=== PATIENT | female | born 1930 | race Caucasian/White ===

== ENCOUNTER 2016-10-28 17:00 | Inpatient (IN) | payer OTHER ==
[~2016-10-28] VITALS: Ht 149.9 cm; Wt 53.5 kg
[2016-10-28 17:00] VITALS: BP_SYST 109
--- NOTE | 2016-10-28 17:00 | NUR ---
Placed in room 04. Placed on campus monitor, blood pressure machine and pulse oximeter. To gown for exam. Side rails up. Report given to DAVID Laguerre.
--- NOTE | 2016-10-28 17:25 | NUR ---
Dr Yusuf at bedside examining patient
--- NOTE | 2016-10-28 17:25 | NUR ---
Dr. Dozier at bedside for assessment/eval
--- NOTE | 2016-10-28 17:28 | NUR ---
82y female presented to ED with complaints of abd pain, nausea, vomiting, and diarrhea x 1week; pt is alert and oriented x 4; VSS; pt supine in bed and denies any pain at this time; will continue to monitor
[2016-10-28] MEDS ORDERED: ATEN1TAB47 PO (17:30)
[2016-10-28] MEDS ORDERED: ONDANSETRON HCL 4 MG/2 ML VIAL IVP ONE (17:30)
[2016-10-28] MEDS ORDERED: LOSA50TA3 PO (17:30)
[2016-10-28] MEDS ORDERED: POTA-118 PO (17:30)
[2016-10-28] MEDS ORDERED: NACL 0.9% 1,000 ML IV ONE (17:30)
[2016-10-28] MEDS ORDERED: GLUXR500 PO (17:30)
[2016-10-28] MEDS ORDERED: OMEP20CA10 PO (17:30)
[2016-10-28] MEDS ORDERED: HYDROmorphone 1 MG INJ. 1 MG/ML AMPUL IVP ONE (17:30)
[2016-10-28] MEDS ORDERED: SIMV40TA2 PO (17:30)
--- NOTE | 2016-10-28 17:30 | NUR ---
Medication reconciliation completed with information provided by bottles provided by pt. Family will take them home. Any prior medication reconciliation on file was reviewed and corrected.
[2016-10-28 17:49] LABS: BASOPHILS % (AUTO) 0.2 % (0.0-2.0); EOSINOPHILS % (AUTO) 0.2 % (0.0-4.0); HEMATOCRIT 36.9 % (36-48); HEMOGLOBIN 12.5 g/dL (12.0-16.0); LYMPHOCYTES # (AUTO) 1.7 K/uL (1.0-5.5); LYMPHOCYTES % (AUTO) 19.5 % (20.5-51.5); MEAN CORPUSCULAR HEMOGLOBIN 32 pg (27-31); MEAN CORPUSCULAR HGB CONC 34 % (32-36); MEAN CORPUSCULAR VOLUME 94 fL (79.0-98.0); MONOCYTES # (AUTO) 0.5 K/uL (0.0-1.0); MONOCYTES % (AUTO) 5.3 % (1.7-9.3); NEUTROPHILS # (AUTO) 6.5 K/uL (1.8-7.7); NEUTROPHILS % (AUTO) 74.8 % (40.0-70.0); PLATELET COUNT (AUTO) 213 K/uL (130-430); RED BLOOD CELL COUNT(AUTO) 3.92 MIL/uL (4.2-6.2); RED CELL DISTRIBUTION WIDTH 13.4 % (9.0-15.0); WHITE BLOOD COUNT (AUTO) 8.7 K/uL (4.8-10.8)
[2016-10-28 18:02] LABS: ANION GAP 12 (5-15); CALCIUM 8.8 mg/dL (8.4-11.0); CHLORIDE 100 mmol/L (98-107); CREATININE 1.29 mg/dL (0.55-1.30); GLUCOSE 180 mg/dL (70-99); POTASSIUM 3.7 mmol/L (3.5-5.1); SODIUM SERUM 134 mmol/L (136-145); UREA NITROGEN, BLOOD 31 mg/dL (8-21)
[2016-10-28 18:06] LABS: ALANINE AMINOTRANSFERASE 29 U/L (12-78); ALBUMIN 3.4 g/dL (3.4-4.8); AMYLASE 71 U/L (0-100); ASPARTATE AMINOTRANSFERASE 33 U/L (10-37); LIPASE 365 U/L (73-393); TOTAL BILIRUBIN 0.3 mg/dL (0.0-1.0)
--- NOTE | 2016-10-28 18:20 | NUR ---
pt off unit to [facility]
[2016-10-28] MEDS ORDERED: PROMETHAZINE HCL 50 MG/ML AMP IM ONE (18:30)
[2016-10-28] MEDS ORDERED: MELO15TA13 PO (18:35)
--- NOTE | 2016-10-28 18:35 | NUR ---
pt return to unit from CT; c/o of nausea; emesis x 1 while in bed; MD orders noted and given; will continue to monitor. Addendum: 10/28/16 at 1935 by SDEDPM made aware pt unable to void to retrieve urine sample at this time; no further orders given at this time; will reattempt collection
--- NOTE | 2016-10-28 18:55 | NUR ---
Dr. Jones at bedside with family discussing assessments and evaluation; further orders given
--- NOTE | 2016-10-28 19:04 | NUR ---
pt placed on 2L O2 via NC; resting comfortably in bed; VSS 126/45 P 59; 95% O2 sat 2L
[2016-10-28 19:53] LABS: BILIRUBIN,URINE NEGATIVE (NEGATIVE); BLOOD, URINE NEGATIVE (NEGATIVE); CLARITY/URINE CLEAR (CLEAR); COLOR,URINE YELLOW (YELLOW); GLUCOSE,URINE NEGATIVE (NEGATIVE); KETONES,URINE 1+ (NEGATIVE); LEUKOCYTE ESTERASE ,URINE 1+ (NEGATIVE); NITRITE, URINE NEGATIVE (NEGATIVE); PH,URINE 5.5 (5.0-8.0); PROTEIN URINE NEGATIVE (NEGATIVE); UROBILINOGEN,URINE 0.2 (0.2-1.0)
--- NOTE | 2016-10-28 20:10 | NUR ---
Patient will be admitted to care of Dr Cabello . Admitted to Medsurg unit. Will go to room 123A. Belongings list completed. Summary report printed. Report will be given at bedside.
--- NOTE | 2016-10-28 20:13 | NUR ---
ADMISSION NOTE Received patient from ER via gurney. Patient admitted with diagnosis of 84. Patient is awake, alert, oriented X 4. Patient oriented to hospital room, call light, toileting, pain management and safety-teach back done. Patient informed that GEOVANNI LEOS will be her nurse and that their room number is 123A. Personal belongings checked and Belongings List documented. Call light within reach.
[2016-10-28 20:23] LABS: BACTERIA,URINE RARE /HPF (None Seen); RBC,URINE 0-3 /HPF (0-3)
[2016-10-28 20:28] VITALS: BP_SYST 140
[2016-10-28] MEDS ORDERED: INSULIN ASPART 100 UNITS/ML, 10 ML VIAL (NovoLOG) SUBCUT PRN (20:30)
[2016-10-28] MEDS ORDERED: DEXTROSE 50% JECT 50 ML DISP.SYRIN IVP PRN (20:30)
[2016-10-28] MEDS: METOCLOPRAMIDE HCL 10 MG/2 ML VIAL IVP SCH ×2 (21:22→22:00)
[2016-10-28] MEDS: NACL 0.9% 1,000 ML IV SCH (21:22)
--- NOTE | 2016-10-28 21:35 | NUR ---
NOTES; BLOOD SUGAR FOUND TO BE 160. INSULIN ADMINISTERED SUBCUTANEOUSLY PER [employer] ORDER.
--- NOTE | 2016-10-28 22:29 | NUR ---
GAYE HUIZAR CALLED AND WAS ASKING TO TALK TO THE DOCTOR TO DOCTOR TO SEE IF THEY NEEDED TO TRANSFER OUT. [employer] SUPERVISOR ADRIANNA SPOKE WITH THEM GAVE THEM DOCTOR LOPEZ NUMBER AND THAT GAYE WAS ASKING FOR US TO FAX THEM THE ED NOTES. I FAXED IT TO THEM AND AWAITING ANY INFO BACK FROM THEM. CHARGE NURSE IS AWARE. Addendum: 10/28/16 at 3607 by Kyara Conley [facility] CALLED AT 1183
--- NOTE | 2016-10-28 22:57 | NUR ---
[facility] CALLED AND SAID THAT THEY ARE STILL WAITING FOR THEIR DOCTOR TO GET AHOLD OF DOCTOR LOPEZ. LV SAID HE WILL CALL US BACK WITH ANY INFO .
[2016-10-28 23:47] VITALS: BP_SYST 100
--- NOTE | 2016-10-29 00:20 | NUR ---
NOTES; PT APPEARED TO BE SLEEPING, EYES CLOSED, RESPIRATION EVEN AND UNLABORED. EASILY AROUSED. DENIES ANY PAIN AT THIS TIME. SAFETY MEASURES IN PROGRESS.
--- NOTE | 2016-10-29 02:45 | NUR ---
NOTES; ASSISTED TO THE BEDSIDE COMMODE. PT VOIDED FREELY GOOD URINE VOLUM. ASSISTED BACK TO BED. PT GAIT IS UNSTEADY. DENIES ANY PAIN AT THIS TIME4. SAFETY MEASURES IN PROGRESS.
[2016-10-29 03:44] VITALS: BP_SYST 103
--- NOTE | 2016-10-29 04:41 | NUR ---
NOTES; PT APPEARED TO BE SLEEPING, EYES CLOSED, RESPIRATION EVEN AND UNLABORED. EASILY AROUSED. DENIES ANY PAIN AT THIS TIME. SAFETY MEASURES IN PROGRESS.
--- NOTE | 2016-10-29 05:14 | NUR ---
consult called doctor mera de la vega and they said that doctor troung is rehabilitation construction specialist but doctor troung is on suspension notified the nurse and they will have to follow up the morning .
--- NOTE | 2016-10-29 05:16 | NUR ---
[facility] HAVE NOT HEARD ANYTHING FROM [facility].
--- NOTE | 2016-10-29 05:40 | NUR ---
NOTES; BLOOD SUGAR FOUND TO BE 87. NO INSULIN NEEDED PER [employer] COVERAGE.
[2016-10-29] MEDS: NACL 0.9% 1,000 ML IV SCH (06:06)
[2016-10-29] MEDS: METOCLOPRAMIDE HCL 10 MG/2 ML VIAL IVP SCH ×3 (06:28→21:23)
[2016-10-29 06:54] LABS: BASOPHILS % (AUTO) 0.2 % (0.0-2.0); EOSINOPHILS # (AUTO) 0.1 K/uL (0.0-0.4); EOSINOPHILS % (AUTO) 0.8 % (0.0-4.0); HEMATOCRIT 35.7 % (36-48); HEMOGLOBIN 12.3 g/dL (12.0-16.0); LYMPHOCYTES # (AUTO) 3.2 K/uL (1.0-5.5); LYMPHOCYTES % (AUTO) 36.5 % (20.5-51.5); MEAN CORPUSCULAR HEMOGLOBIN 32 pg (27-31); MEAN CORPUSCULAR HGB CONC 34 % (32-36); MEAN CORPUSCULAR VOLUME 93 fL (79.0-98.0); MONOCYTES # (AUTO) 0.7 K/uL (0.0-1.0); MONOCYTES % (AUTO) 8.3 % (1.7-9.3); NEUTROPHILS # (AUTO) 4.9 K/uL (1.8-7.7); NEUTROPHILS % (AUTO) 54.2 % (40.0-70.0); PLATELET COUNT (AUTO) 182 K/uL (130-430); RED BLOOD CELL COUNT(AUTO) 3.84 MIL/uL (4.2-6.2); RED CELL DISTRIBUTION WIDTH 13.4 % (9.0-15.0); WHITE BLOOD COUNT (AUTO) 8.9 K/uL (4.8-10.8)
[2016-10-29 07:09] LABS: ANION GAP 10 (5-15); CALCIUM 8.4 mg/dL (8.4-11.0); CHLORIDE 107 mmol/L (98-107); CREATININE 1.03 mg/dL (0.55-1.30); GLUCOSE 97 mg/dL (70-99); POTASSIUM 3.6 mmol/L (3.5-5.1); SODIUM SERUM 140 mmol/L (136-145); UREA NITROGEN, BLOOD 21 mg/dL (8-21)
--- NOTE | 2016-10-29 07:11 | NUR ---
NOTES; RESTING QUIETLY, NO APPARENT DISTRESS NOTED. VITAL SIGNS STABLE, AFEBRILE. DENIES ANY PAIN AT THIS TIME. ALL NEEDS ATTENDED. SAFETY MEASURES MAINTAINED.
--- NOTE | 2016-10-29 08:00 | NUR ---
AM Initial Notes Pt aaox4 with no complaints of abdominal pain or feels nauseated. No distress noted. IV to left AC #20g patent with IV fluid infusing. Educated about fall and safety with bed alarm armed, 3 rails up and close to nurse's station. Encouraged to call for assistance. Call light within reach. Will monitor.
[2016-10-29 08:31] VITALS: BP_SYST 131
[2016-10-29] MEDS: PANTOPRAZOLE SODIUM 40 MG/VIAL (PROTONIX) IVP SCH (09:17)
--- NOTE | 2016-10-29 10:03 | NUR ---
DISCHARGE PLANNING DC order for hospital Tx. Ordered Radiology CD. Placed transportation packet in nurse station. Addendum: 10/29/16 at 1050 by Sheyla Patrick RN Order for transfer to [facility] forwarded to FLAVIO Calderon, along with H&P, [address] report[address] Patient and Daughter, Dianne, updated about pending transfer they understand and are agreeable to transfer.
--- NOTE | 2016-10-29 11:00 | NUR ---
Rounds Pt awake resting in bed with daughter at bedside. No complaints of pain or discomfort. No distress noted. Encouraged to call for assistance. Call light within reach. Will monitor.
[2016-10-29 12:13] VITALS: BP_SYST 98
--- NOTE | 2016-10-29 13:00 | NUR ---
Rounds Pt asleep. No significant changes noted. Will monitor.
--- NOTE | 2016-10-29 15:02 | NUR ---
Rounds Pt awake resting in bed. No complaints of abdominal pain or discomfort at this time. Will monitor.
--- NOTE | 2016-10-29 15:15 | NUR ---
DC PLANNING: Received phone message from Adarsh Calderon insurance stated " no transfer to net work today, but to redo EGD in am and june d/c home tomorrow or on Tuesday.
[2016-10-29 17:02] VITALS: BP_SYST 96
--- NOTE | 2016-10-29 18:30 | NUR ---
Closing notes Pt awake resting in bed with no significant changes noted. Kept comfortable. Will endorse care to incoming nurse.
[2016-10-29 20:07] VITALS: BP_SYST 99
--- NOTE | 2016-10-29 20:19 | NUR ---
1999 initial notes: pt is on bed. watching tv. alert. awake, oriented x 4. no pain. not distress. vital sign are with in normal limit. no skin issue. ivf ongoing to left ac gauge 20- intact. assisted pty to bathroom and sink for self care. steady gait. explain plan of npo for tonight and egd for tomorrow. pt agree. needs attended. call light in reach. armature balancer ails up. will monitor.
--- NOTE | 2016-10-29 20:55 | NUR ---
page dr. mas- ask dr. mas for ivf with dextrose due npo status after midnight. dr. mas order d5ns at 70cc/hr. order enter.
[2016-10-29] MEDS: D5NS 1,000 ML IV SCH (21:23)
--- NOTE | 2016-10-29 22:21 | NUR ---
notes: pt is resting on her side. comfortable. no pain. call light in reach. bed alarm on. will monitor.
--- NOTE | 2016-10-29 23:58 | NUR ---
notes: pt is awake ,alert. watching tv. vital sign are stable. assisted to bsc. back to bed. needs attended. bed alarm on. will monitor.
[2016-10-30] VITALS: BP_SYST 137
--- NOTE | 2016-10-30 02:21 | NUR ---
notes: sleeping, comfortable. no sob. bed alarm on. call light in reach. will monitor.
[2016-10-30 04:00] VITALS: BP_SYST 130
--- NOTE | 2016-10-30 04:14 | NUR ---
notes: pt is resting on her side. comfortable. no pain. vital sign are with in normal limit. needs attended. call light in reach. bed alarm on. will monitor.
[2016-10-30] MEDS: METOCLOPRAMIDE HCL 10 MG/2 ML VIAL IVP SCH ×2 (06:11→15:52)
[2016-10-30 06:50] LABS: PROTHROMBIN TIME 10.6 SECS (9.5-12.5)
--- NOTE | 2016-10-30 06:54 | NUR ---
closing: awake, alert. no pain. blood sugar 113, no coverage. assisted to bedside commode. needs attended. maintained on npo for egd today. call light in reach. will give bedside report to am rn.
[2016-10-30 07:00] LABS: ANION GAP 8 (5-15); CALCIUM 8.5 mg/dL (8.4-11.0); CHLORIDE 112 mmol/L (98-107); CREATININE 1.07 mg/dL (0.55-1.30); GLUCOSE 132 mg/dL (70-99); POTASSIUM 4.2 mmol/L (3.5-5.1); SODIUM SERUM 144 mmol/L (136-145); UREA NITROGEN, BLOOD 16 mg/dL (8-21)
[2016-10-30 07:14] LABS: BASOPHILS % (AUTO) 0.5 % (0.0-2.0); EOSINOPHILS # (AUTO) 0.2 K/uL (0.0-0.4); EOSINOPHILS % (AUTO) 2.2 % (0.0-4.0); HEMATOCRIT 35.9 % (36-48); HEMOGLOBIN 12.1 g/dL (12.0-16.0); LYMPHOCYTES # (AUTO) 2.6 K/uL (1.0-5.5); LYMPHOCYTES % (AUTO) 30.1 % (20.5-51.5); MEAN CORPUSCULAR HEMOGLOBIN 32 pg (27-31); MEAN CORPUSCULAR HGB CONC 34 % (32-36); MEAN CORPUSCULAR VOLUME 94 fL (79.0-98.0); MONOCYTES # (AUTO) 0.7 K/uL (0.0-1.0); NEUTROPHILS # (AUTO) 5.1 K/uL (1.8-7.7); NEUTROPHILS % (AUTO) 59.2 % (40.0-70.0); PLATELET COUNT (AUTO) 185 K/uL (130-430); RED BLOOD CELL COUNT(AUTO) 3.82 MIL/uL (4.2-6.2); RED CELL DISTRIBUTION WIDTH 14.2 % (9.0-15.0); WHITE BLOOD COUNT (AUTO) 8.6 K/uL (4.8-10.8)
[2016-10-30 07:35] VITALS: BP_SYST 132
--- NOTE | 2016-10-30 07:35 | NUR ---
OPENING NOTE/ TRANSPORT TO SURGERY PT PRESENTED WITH DIABETIC GASTROPARESIS AND IS SCHEDULED FOR A EGD THIS MORNING. PT IS STABLE ON ROOM AIR WITH NO COMPLAINT OF DISCOMFORT. DURING MY ASSESSMENT, THE SURGICAL TEAM ARRIVED AND TRANSPORTED HER TO SURGERY.
[2016-10-30] MEDS ORDERED: fentaNYL CITRATE/PF 100 MCG/2 ML AMP ONE (07:55)
[2016-10-30] MEDS ORDERED: MIDAZOLAM HCL 5 MG/5 ML VIAL ONE ×2 (07:55→16:35)
[2016-10-30] MEDS ORDERED: SIMETHICONE 40 MG/0.6 ML ML ONE (07:56)
--- NOTE | 2016-10-30 09:15 | NUR ---
0900 PROTONIX DELAYED BECAUSE PT IS IN SURGERY
--- NOTE | 2016-10-30 09:30 | NUR ---
PT RETURNED TO ROOM/EGD DELAYED SURGEON WAS NOT AVAILABLE DUE TO A SCHEDULING CONFLICT. EGD RESCHEDULED FOR 1700 TONIGHT.
[2016-10-30] MEDS: PANTOPRAZOLE SODIUM 40 MG/VIAL (PROTONIX) IVP SCH (11:07)
[2016-10-30 11:29] VITALS: BP_SYST 124
[2016-10-30] MEDS: D5NS 1,000 ML IV SCH (14:10)
--- NOTE | 2016-10-30 14:21 | NUR ---
DC PLANNING: RAMÓN ACOSTA TANNING [employer] ATTENDANT FROM [employer] CALLED AND LEFT A MESSAGE THAT IF THERE IS A DC NEEDS FOR THE PT, TO CALL THE WEEKEND CM OF [employer] TEL# , BUT IF THE EGD IS NEGATIVE TO JUST DC THE PT HOME AND F/U W/ PCP.
[2016-10-30 15:35] VITALS: BP_SYST 131
--- NOTE | 2016-10-30 16:12 | NUR ---
Dietitian Recommendations *Recommend advance diet to [facility] diet w/ Boost Glucose Control BID when medically appropriate. Oral supplement provides additional 500 kcal and 28 gm Protein daily. Please see Nutritional Assessment for details.
[2016-10-30] MEDS ORDERED: MEPERIDINE HCL/PF 100 MG/ML AMP ONE (16:35)
--- NOTE | 2016-10-30 16:40 | NUR ---
PT TRANSPORTED TO SURGERY FOR SCHEDULED EGD PROCEDURE.
[2016-10-30] MEDS ORDERED: MEPERIDINE HCL/PF 100 MG/ML AMP IV ONE (17:18)
[2016-10-30] MEDS ORDERED: MIDAZOLAM HCL 5 MG/5 ML VIAL IVP ONE (17:20)
--- NOTE | 2016-10-30 17:45 | NUR ---
PT RETURNED TO ROOM VS STABLE ON ROOM AIR WITH NO COMPLAINT OF PAIN.
--- NOTE | 2016-10-30 18:30 | NUR ---
D/C EDUCATION PROVIDED PER DR. LOPEZ, I EDUCATED THE PATIENT ON DIET MODIFICATION TO AVOID ACIDIC FOOD, TO AVOID NSAIDS, AND TO TALE OTC PRILOSEC FOR 30 DAYS. PT ACKNOWLEDGED UNDERSTANDING.
--- NOTE | 2016-10-30 19:01 | NUR ---
CLOSING NOTE PT IS COMFORTABLE WITH NO COMPLAINT OF DISCOMFORT. I WILL ENDORSE D/C CHARTING TO PM NURSE, SHE IS SCHEDULED TO D/C HOME AT [address] [facility] [place] IF SHE TOLERATES HER MEAL.
[2016-10-30] MEDS ORDERED: OMEP40CA33 PO (19:32)
[2016-10-30 19:46] VITALS: BP_SYST 128
--- NOTE | 2016-10-30 20:07 | NUR ---
Discharge Notes Patient sitting on her bed, awake, alert and verbally responsive with her daughter at bedside. No sign of respiratory distress and no complain of pain noted. Patient ate her dinner with no complain of abdominal discomfort and no nausea/vomiting noted. Given Discharge paper and instructions. No personal belongings missing noted. Removed patients IV access and arm band. Patient is discharged home accompanied by her daughter via private car
--- NOTE | 2016-11-02 12:31 | NUR ---
Discharge Follow Up Phone Call SAFETY AIDE phoned patient's daughter, Dianne [phone]. Patient is improving. Discussed discharge instructions. Discussed some examples of acidic foods; Dianne will review with patient. They understand to avoid NSAIDS. Patient has OTC prilosec and is taking it as directed. No appointment has been made with the PCP; SAFETY AIDE urged the appointment to be made today for early next week at the very latest. Dianne prefers to make the appointment herself. Dianne will check patient's blood sugar today. Dianne will discuss [employer] application information with patient tomorrow and follow up with Aj.
== END 2016-10-30 20:05 | disposition home or self-care (01) | DRG 383 ==
LOC: SED 17:00 → SMU 19:44
PROVIDERS: ADMIT General Practice; ATTEND General Practice
PROC: 0DB68ZX Excision of Stomach, Via Natural or Artificial Opening Endoscopic, Diagnostic (ICD-10-PCS; principal; 2016-10-30 17:00)
DX: K25.9 Gastric ulcer, unspecified as acute or chronic, without hemorrhage or perforation (principal); N17.0 Acute kidney failure with tubular necrosis; E87.1 Hypo-osmolality and hyponatremia; E11.43 Type 2 diabetes mellitus with diabetic autonomic (poly)neuropathy; K31.84 Gastroparesis; E78.5 Hyperlipidemia, unspecified; I10 Essential (primary) hypertension; K21.9 Gastro-esophageal reflux disease without esophagitis; K29.70 Gastritis, unspecified, without bleeding; Z85.3 Personal history of malignant neoplasm of breast; Z90.10 Acquired absence of unspecified breast and nipple
CPT/HCPCS: 36415; 71010; 76705; 80048; 80053; 81000-TC; 82150-TC; 82962; 83690-TC; 83735-TC; 85025; 85610-TC; 87081; 87086; 88305; 88312; 88313; 93005; 96372; 96374; 96375; 99285; C9113; J1170; J1815; J2175; J2250; J2405; J2550; J2765; J3010; J7030; J7042